=== PATIENT | male | born 1950 | race Caucasian/White ===

== ENCOUNTER 2021-04-30 16:52 | Outpatient (CLI) | payer MEDICARE, SELFPAY ==
--- NOTE | ~2021-04-30 | US_ITS ---
EXAMINATION: US thyroid EXAM DATE: 04/30/2021 17:40 INDICATION: E05.90 - Thyrotoxicosis, unspecified without thyrotoxic c... TECHNIQUE: Multiple grayscale and Doppler images of the thyroid were obtained (by a technologist who performed the scan) and subsequently reviewed. Individual nodules and recommendations may be reporte d in accordance with TI-RADS system as designated by the 2017 ACR White Paper TI-RADS committee. The re is no prior study for comparison. FINDINGS: Right thyroid lobe measures 3.9 x 1.6 x 1.4 cm, the left thyroid lobe measures 4.1 x 2.0 x 1.6 cm. Mi ldly heterogeneous thyroid echogenicity with some scattered thyroid nodules, largest in the left thyr oid lobe measuring 2.1 x 1.8 x 1.2, solid (2 points), isoechoic (1 point), wider than tall, smooth we ll defined margin, without echogenic foci, category TR3 for this nodule. Others are less than 1 cm. IMPRESSION: 1. Normal-sized thyroid. 2. Recommend one-year follow-up ultrasound for left thyroid lobe nodule. Reviewed, dictated and finalized at location B.
== END 2021-04-30 16:53 | disposition home or self-care (01) ==
LOC: ANHIMG 16:53
PROVIDERS: PCP Family Medicine; Visit Provider Internal Medicine Endocrinology, Diabetes & Metabolism
DX: E05.90 Thyrotoxicosis, unspecified without thyrotoxic crisis or storm (principal)
CPT/HCPCS: 76536

== ENCOUNTER 2021-11-05 15:10 | Outpatient (CLI) | payer MEDICARE, SELFPAY ==
[2021-11-05 17:04] LABS: Free T4 Free Thyroxine 1.46 ng/mL (0.78-2.19)
[2021-11-05 17:19] LABS: Thyroid Stimulating Hormone < 0.015 uIU/mL (0.465-4.680)
[2021-11-08 07:33] LABS: Triiodothyronine T3 Free 4.4 pg/mL (2.3-4.2)
== END 2021-11-05 15:11 | disposition home or self-care (01) ==
LOC: ANHWCLAB 15:13
PROVIDERS: PCP Family Medicine; Visit Provider Internal Medicine Endocrinology, Diabetes & Metabolism
DX: E04.1 Nontoxic single thyroid nodule (principal); E05.90 Thyrotoxicosis, unspecified without thyrotoxic crisis or storm
CPT/HCPCS: 36415; 84439; 84443; 84481

== ENCOUNTER → 2021-12-27 00:13 | Outpatient (CLI) | payer MEDICARE, SELFPAY ==
[2021-12-27 13:37] LABS: SARS-CoV-2 RNA PCR Negative
== END ==
PROVIDERS: Nurse Practitioner Family; PCP Family Medicine; Visit Provider Internal Medicine Critical Care Medicine
DX: R68.89 Other general symptoms and signs (principal); Z20.822 Contact with and (suspected) exposure to COVID-19
CPT/HCPCS: C9803; U0003; U0005

== ENCOUNTER 2021-12-30 07:28 | Outpatient (CLI) | payer MEDICARE, SELFPAY ==
--- NOTE | 2022-01-13 12:01 | WPDSLEEPSTUD ---
Sleep Study Date of Study: 12/30/21 Ordering Provider: Abimael Gilman MD Interpreting Physician: Rebecca Verdugo DO Sleep Study Type: Polysomnogram Height: 1.78 m Weight: 86.183 kg Body Mass Index: 27.2 Neck Circumference (inches): 14 Simpson: 7 Reason for Sleep Study Frequent nighttime awakenings Sleep History The patient is a 71-year-old male with ADD, anxiety, autoimmune thyroiditis, hypertension, back pain, neck pain and hyperlipidemia that had a sleep study ordered by his primary care physician for sleep disturbances. The patient denies awakening from sleep short of breath. He denies awakening at night with her, belching more. He occasionally snores not others complain. He rarely has trouble sleeping when he has a cold. He denies waking up gasping for air throughout the night. He denies having breathing problems at night observed by himself or others. He occasionally sweats at night. He frequently notices heart palpitations throughout the night. He frequently falls asleep during the day but never while driving. He denies having trouble at school or work due to sleepiness. He denies sleep paralysis, cataplexy and hypnagogic / hypnopompic hallucinations. He occasionally has nightmares. He rarely remembers his dreams. He rarely has thoughts racing through his mind. He occasionally feels sad or depressed. He occasionally has anxiety. He frequently has muscular tension. He denies noticing parts of his body jerk. He denies kicking during the night. He frequently has crawling and aching feelings in his legs and occasionally has leg pain during the night. He denies grinding his teeth during sleep awakening with morning jaw pain. He is frequently bothered by pain during the day frequently awakened by pain during the night. He constantly wakes up feeling stiff in the morning. He constantly wakes up with sore and achy muscles. She constantly wakes up with pain in the neck and spine. He goes to bed between 10-11 p.m. on both weekdays and weekends. It takes him a few minutes to fall asleep. He wakes up 3-5 times throughout the night to urinate. He is able fall back asleep immediately. He wakes up around 6:00 a.m. on both weekdays and weekends. He is unsure how many hours of sleep he gets per night. He does not stay in bed after waking up the morning. He currently lives with his but they sleep in separate rooms. He does not consume any caffeinated beverages within 2 hours of bedtime. He does not engage in physical exercise before bedtime. He does not read or watch television before falling asleep. He will take naps in the afternoon or the evening but they are not refreshing. He drinks 2-3 cups of caffeinated beverage per day. He will drink alcohol socially but not every day. He denies tobacco and recreational drug use. [facility] Past Medical History Medical History ADD (attention deficit disorder) Anxiety Arthritis Autoimmune thyroiditis Back pain Benign essential hypertension BMI 26.0-26.9,adult BMI 27.0-27.9,adult BMI 28.0-28.9,adult Cervical spondylosis Cervicalgia Demyelinating changes in brain Encounter for routine adult health examination without abnormal findings Family history of diabetes mellitus type II Fatigue Follow up Headache High frequency hearing loss History of concussion Hyperlipidemia Hypertension Left shoulder pain On long term acute care registered nurse drug therapy Paresthesia Rectal tear Right knee dislocation Right shoulder strain Screening for prostate cancer Skin tag of rectum Spondylosis of lumbar spine Vitamin D deficiency Surgical History Surgical History H/O arthroscopy of shoulder H/O right knee surgery History of removal of cyst Family History Family History Mother Asthma Family history of cardiovascular disease
[2022-01-13 17:36] VITALS: BMI 27.2
== END 2021-12-31 07:16 | disposition home or self-care (01) ==
LOC: ANHCSM 07:30
PROVIDERS: PCP Family Medicine; Visit Provider Family Medicine
DX: F51.8 Other sleep disorders not due to a substance or known physiological condition (principal); R53.83 Other fatigue; G37.9 Demyelinating disease of central nervous system, unspecified; I10 Essential (primary) hypertension; G47.61 Periodic limb movement disorder; G47.9 Sleep disorder, unspecified
CPT/HCPCS: 95810

== ENCOUNTER 2022-01-06 13:31 | Outpatient (CLI) | payer MEDICARE, SELFPAY ==
--- NOTE | ~2022-01-06 | NM_ITS ---
EXAMINATION: NM thyroid scan w uptake DATE: 01/07/2022 15:19 INDICATION: Evaluate hyperthyroidism COMPARISON: Ultrasound dated 04/30/2021 TECHNIQUE: 345 microcuries I-123 was administered orally in capsule form. Scintigraphic images of th e thyroid gland were obtained at 24 hours. Thyroid uptake was calculated by the technologist. FINDINGS: The thyroid uptake is 31.3% (normal 10-30%), with the right lobe measuring 13% uptake and the left 18 .7%. There is no focal area of decreased or increased activity to suggest hypofunctioning or hyperfun ctioning nodule. IMPRESSION: 1. Mild increased 24-hour iodine uptake without focal hyperfunctioning/hyperfunctioning nodules cons istent with Graves' disease. Reviewed, dictated and finalized at location B. IMPRESSION: 1. Mild increased 24-hour iodine uptake without focal hyperfunctioning/hyperfu nctioning nodules consistent with Graves' disease.
== END 2022-01-06 13:32 | disposition home or self-care (01) ==
PROVIDERS: PCP Family Medicine; Visit Provider Internal Medicine Endocrinology, Diabetes & Metabolism
DX: E05.90 Thyrotoxicosis, unspecified without thyrotoxic crisis or storm (principal)
CPT/HCPCS: 78014; A9516

== ENCOUNTER 2022-11-17 09:34 | Outpatient (CLI) | payer MEDICARE, SELFPAY | END 2022-11-17 09:35 | disposition home or self-care (01) | LOC: ANHWCLAB 09:36 | PROVIDERS: PCP Family Medicine; Visit Provider Internal Medicine Endocrinology, Diabetes & Metabolism | DX: E89.0 Postprocedural hypothyroidism (principal) | CPT/HCPCS: 36415; 84439; 84443 ==

== ENCOUNTER 2023-05-24 09:05 | Outpatient (CLI) | payer MEDICARE, SELFPAY ==
[2023-05-24 13:20] LABS: Free T4 Free Thyroxine 1.76 ng/mL (0.78-2.19)
[2023-05-24 13:32] LABS: Thyroid Stimulating Hormone 0.053 uIU/mL (0.465-4.680)
== END 2023-05-24 09:06 | disposition home or self-care (01) ==
LOC: ANHWCLAB 09:06
PROVIDERS: PCP Family Medicine; Visit Provider Internal Medicine Endocrinology, Diabetes & Metabolism
DX: E89.0 Postprocedural hypothyroidism (principal)
CPT/HCPCS: 36415; 84439; 84443

== ENCOUNTER 2023-08-04 10:48 | Outpatient (CLI) | payer MEDICARE, SELFPAY ==
--- NOTE | 2023-08-22 08:27 | WPDHOLTEREM ---
Holter/Event Monitor Holter/Event Monitor Date of procedure: 08/04/23 Holter/Event Procedure: 48 Hr Holter Monitor Indications: Cardiac arrhythmia Conclusion: 1. 48 hour holter monitor on 08/04/23. 2. Predominant rhythm is atrial fibrillation. HR range 41-135 bpm; average 74 bpm. HR at 41 bpm was sinus bradycardia with sinus arrhythmia at 01:09. HR at 135 bpm was atrial fibrillation at 07:27. 3. No other supraventricular arrhythmias. 4. There are 47 premature ventricular complexes. No ventricular tachycardia. 5. No significant pauses greater than 2 seconds. 6. No symptoms available for correlation.
== END 2023-08-04 10:49 | disposition home or self-care (01) ==
LOC: ANHCARD 10:49
PROVIDERS: PCP Family Medicine; Visit Provider Family Medicine
DX: I49.9 Cardiac arrhythmia, unspecified (principal); I49.3 Ventricular premature depolarization
CPT/HCPCS: 93225; 93226

== ENCOUNTER 2024-10-12 02:25 | Day surgery (SDC) | payer MEDICARE, SELFPAY ==
[2024-10-03 15:42] VITALS: BMI 28.0
--- NOTE | 2024-10-03 16:20 | PC.NURSE ---
Spoke with PATIENT regarding medication XARELTO. PATIENT verbalizes understanding that the last dose is to be taken on 10/08/2024 and the Endoscopist will instruct them when to restart after the procedure.
--- OUTSIDE RECORDS SUMMARY | 2024-10-12 02:28 | XMS_ITS | Referral Summary ---
Author Organization [facility] Medical Office Building [address] [place] [address] Care Team Providers Care Press Clippings Cutter And Paster Name Role Phone Abimael Gilman MD Primary Care Provider + [phone] Eva Yuan MD Unavailable [phone] Carissa Esquivel MD Unavailable [phone] Allergies No known active allergies Medications amLODIPine (NORVASC) 10 mg tablet 02/09/2022 Active atorvastatin (LIPITOR) 20 mg tablet 02/09/2022 Active losartan-hydroCH LOROthiazide (HYZAAR) 100-12.5 mg per tablet 02/09/2022 Active methIMAzole (TAPAZOLE) 5 mg tablet 02/02/2022 Active iron bis-gly/FA/C/B12 /Ca/succ (IRON-150 ORAL) Take by mouth Active ascorbic acid (VITAMIN C ORAL) Take by mouth Active aspirin 81 mg enteric coated tablet Take 81 mg by mouth daily Active ubidecarenone (H2Q COQ10 ORAL) Take by mouth Active Active Problems Problem Noted Date Diagnosed Date Graves disease 02/11/2022 Social History Tobacco Use Types Packs/Day Years Used Date Smoking Tobacco: Never Personal Safety Answer Date Recorded Getting School Help Needed Not on file 10/08 Sex and Gender Information Value Date Recorded Sex Assigned at Not on file 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 Gender Identity Not on file Sexual Orientation Not on file Last Filed Vital Signs Vital Sign Reading Time Taken Comments Blood Pressure 172/74 02/11/2022 11:07 AM CDT Pulse 61 02/11/2022 11:07 AM CDT Temperature - - Respiratory Rate - - Oxygen Saturation 100% 02/11/2022 11:07 AM CDT Inhaled Oxygen Concentration - - Weight 80.7 kg (178 lb) 02/11/2022 11:07 AM CDT Height - - Body Mass Index - - Plan of Treatment Not on file Insurance R HMO REF R HMO REF [place] [id number] [facility] Care Teams Press Clippings Cutter And Paster Relationship Specialty Start Date End Date Abimael Gilman MD PCP - General Family Medicine 02/11/22 Eva Yuan MD Radiation Oncologist Radiation Oncology 02/11/22 Carissa Esquivel MD [address] [address] Referring Physician Internal Medicine 02/11/22
--- OUTSIDE RECORDS SUMMARY | 2024-10-12 02:28 | XMS_ITS | Clinical Summary ---
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 Gender Identity Not on file Sexual Orientation Not on file Obstetrics History Last Filed Vital Signs Vital Sign Reading Time Taken Comments Blood Pressure 172/74 02/11/2022 11:07 AM CDT Pulse 61 02/11/2022 11:07 AM CDT Temperature - - Respiratory Rate - - Oxygen Saturation 100% 02/11/2022 11:07 AM CDT Inhaled Oxygen Concentration - - Weight 80.7 kg (178 lb) 02/11/2022 11:07 AM CDT Height - - Body Mass Index - - Plan of Treatment Health Maintenance Due Date Last Done Comments Depression Screening 1950 Fall Risk Assessment 1950 Hepatitis C Screening 1950 Hepatitis B Screening 01/26/1966 Pneumococcal vaccine 65+ (1 of 1 - PCV) 01/26/1998 Zoster Vaccine (1 of 2) 01/26/1998 Well Visit 65+ 01/26/2013 Influenza Vaccine (#1) 2024 DTaP/Tdap/Td Vaccine (2 - Td or Tdap) 05/16/202708/2016 Insurance R HMO REF R H[facility] REF [facility] Care Teams Material Damage Appraiser Relationship Specialty Start Date End Date Abimael Gilman MD PCP - General Family Medicine 02/11/22 Eva Yuan MD Radiation Oncologist Radiation Oncology 02/11/22 Carissa Esquivel MD [address] [address] Referring Physician Internal Medicine 02/11/22
--- OUTSIDE RECORDS SUMMARY | 2024-10-12 02:28 | XMS_ITS | CONTINUITY OF CARE DOCUMENT ---
Author Name valentin hanson Address Unknown Organization [facility] Address [address] [place] [address] Phone [phone] Care Team Providers Care Director Voice Name Role Phone valentin hanson Unavailable Unavailable INSURANCE PROVIDERS Payer name Policy type / Coverage type [employer] red alliance party ID [employer] Workers[employer] compensation health cla [id number]
--- OUTSIDE RECORDS SUMMARY | 2024-10-12 02:28 | XMS_ITS | Continuity of Care Document ---
Author Name [facility] Organization [facility] Care Team Providers Care Compo Conveyor Operator Name Role Phone [facility] Unavailable Unavailable Problems Combined list of problems from Department of Defense and Veterans Affairs facilities. It does not include entries that were removed or entered in error. Problem Status Onset Date Problem Type Date of Resolution Comments Source H/O: Stroke (SCT 821226300) Active 0 Condition Aug 06, 2020 Entered By: LIZ MARTÍNEZ Comment: Presumed small-vessel ischemic stroke diagnosed at Neurology visit 01/16/20 [facility] Anxiety (SNOMED CT 80439272) Active Condition [facility] Benign essential hypertension Active Condition [facility] Benign hypertension (SNOMED CT 59454061) Active Condition [facility] Chronic frontal sinusitis (SNOMED CT 22208579) Active Condition [facility] Exposure to potentially hazardous substance Active Condition Jul 19, 2023 Entered By: SHAYLA MARSH I Comment: [facility] [place] [place] [facility] Hearing loss (SNOMED CT 58746217) Active Condition [facility] Hyperlipidemia Active Condition [facility] Hyperlipidemia (SNOMED CT 22454777) Active Condition [facility] Diagnosis: ICD-10-CM I10 Essential (primary) hypertension Active Diagnosis [facility] Diagnosis: ICD-10-CM H04.123 Dry eye syndrome of bilateral lacrimal glands Active Diagnosis [facility] Diagnosis: ICD-10-CM F41.9 Anxiety disorder, unspecified Active Diagnosis [facility] Diagnosis: ICD-10-CM Z77.29 Contact with and exposure to other hazardous substances Active Diagnosis [facility] Diagnosis: ICD-10-CM Z71.9 Counseling, unspecified Active Diagnosis [facility] Medications Combined list of outpatient medications from Department of Defense and Veterans Affairs facilities.Medications provided include 1) outpatient medications from the last 15 months, and 2) patient-reported medications. Medication Details Route Status Patient Instructions Prescription Expires Prescription Number Last Dispense Date Ordering Provider Order Date Order Qty Source AMLODIPINE BESYLATE 10MG TAB TAKE ONE TABLET BY MOUTH ONCE A DAY ORAL ACTIVE CRISTINA COOL 2017 [facility] Kezia ASPIRIN 81MG TAB,EC TAKE ONE TABLET BY MOUTH ONCE A DAY ORAL ACTIVE CRISTINA COOL 2021 [facility] N FLUVOXAMINE MALEATE 50MG TAB TAKE ONE TABLET BY MOUTH AT BEDTIME FOR 2 WEEKS THEN STOP ORAL DISCONT INUED 08/19/2023 [id number] PHILIP LEE JR 2022 14 [facility] N HYDROCHLORO THIAZIDE 25MG TAB TAKE ONE-HALF TABLET BY MOUTH ONCE A DAY ORAL ACTIVE CRISTINA COOL 2019 [facility] N LEVOTHYROXI NE NA 100MCG TAB (SYNTHROID) TAKE ONE TABLET BY MOUTH EVERY MORNING BEFORE A MEAL ORAL ACTIVE CRISTINA COOL 2023 [facility] N LORAZEPAM 0.5MG TAB TAKE ONE TABLET BY MOUTH TWICE DAILY NEEDED ORAL 02/19/2024 [id number] PHILIP LEE JR 2023 60 [facility] N LORAZEPAM 0.5MG TAB TAKE ONE TABLET BY MOUTH THREE TIMES A DAY NEEDED ORAL ACTIVE MA ELOISA 2012 [facility] N LOSARTAN POTASSIUM 100MG TAB TAKE ONE TABLET BY MOUTH ONCE A DAY ORAL ACTIVE ,MA ELOISA 2012 [facility] N PEG-400 0.4%/PROPYL ALISON GLYCOL 0.3% SOLN,OPH INSTILL 1 DROP IN BOTH EYES FOUR TIMES A DAY NEEDED OPHTHA LMIC ACTIVE 11/30/2024 [id number] SONJA JASMINE 2023 30 [facility] N RIVAROXABAN 20MG TAB TAKE ONE TABLET BY MOUTH ONCE A DAY ORAL ACTIVE COOL CRISTINA 2023 [facility] N Allergies, Adverse Reactions, Alerts Combined list of allergies from [facility] facilities. It does not include entries that were removed or entered in error. Substance Category Reaction Severity Reaction type Status Date Reported Comments Source ATORVASTATIN Propensity to adverse reactions to drug (finding) Muscle pain active [facility] Immunizations Combined list of available immunizations from the [facility] facilities. Immunization Series Date Given Administered By Site Reaction Lot Number CVX Code Drug Photogravure Press Operator Status Comments Source PNEUMOCOCCAL CONJUGATE PCV 13 2017 133 complet ed [facility] N TDAP 2016 115 complet ed Right Deltoid [facility] Vital Signs Combined list of inpatient and outpatient Vital Signs from [facility], ranging from 12 months to all on record, depending upon the facility. Vital Sign Value Date Comments Source SYSTOLIC BLOOD PRESSURE 144 06/08/2024 10:26:08 [facility] DIASTOLIC BLOOD PRESSURE 69 06/08/2024 10:26:08 [facility] PULSE OXIMETRY 98 06/08/2024 10:26:08 S [facility] WEIGHT 197.5 06/08/2024 10:26:08 [facility] BMI 28 kg/m2 06/08/2024 10:26:08 [facility] PAIN 1 06/08/2024 10:26:08 [facility] TEMPERATURE 97.7 06/08/2024 10:26:08 [facility] PULSE 30 06/08/2024 10:26:08 [facility] RESPIRATION 18 06/08/2024 10:26:08 [facility] Encounters Combined list of: 1) Encounters from Department of Veterans Affairs facilities going backup to the last 18 months, not all VA inpatient encounters are included; 2) Encounters from the Department of Defense facilities going backup to 280 months. Location Location Details Encounter Type Encounter Number Reason For Visit Attending Provider ADM Date DC Date Status Disposition Source [facility] PSYCH DIAG EVAL W/MED SRVCS [id number] Diagnos is: ICD-10- CM F41.9 Anxiety disorde r, unspeci fiwes LEEWILL MARIA DEL ROSARIO Ariel ANTUNEZ 05/10 [facility] OFFICE O/P EST MOD 30-39 MIN [id number] Diagnos is: ICD-10- CM I10 Essenti al (primar y) hyperte CRISTINA Summers 06/14 [facility] OFFICE O/P EST MOD 30-39 MIN [id number] Diagnos is: ICD-10- CM F41.9 Anxiety disorde r, unspeci yonatan LEEWILL MARIA DEL ROSARIO George JR 06/14 [facility] END OF LIFE COUNSELING [id number] Diagnos is: ICD-10- CM 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, unspeci DARLIN Kendall 06/17 [facility] OFFICE O/P EST HI 40-54 MIN [id number] Diagnos is: ICD-10- CM Z77.29 Contact with and exposur e to other hazardo us substan ANGLE Thomas I 07/19 [facility] Outpatient Encounter [id number] BRAVO RIOS 07/19 [facility] O[facility]P EST MOD 30 MIN [id number] Diagnos is: ICD-10- CM F41.9 Anxiety disorde r, unspeci RAFFI Bruno 08/19 [facility] En[facility] [id number] 10/27 [facility] O/P EST MOD 30 MIN [id number] Diagnos is: ICD-10- CM H04.123 Dry eye syndrom e of bilater al lacrima l glands IGLESIA JASMINE [facility] 11/29 [facility] Outpatient Encounter [id number] IGLESIA JASMINE [facility] 12/12 [facility] Outpatient Encounter [id number] IGLESIA JASMINE [facility] 12/12 [facility] OFFICE O/P EST MOD 30 MIN [id number] Diagnos is: ICD-10- CM I10 Essenti al (primar y) hyperte CRISTINA Summers 06/08 [facility] Social History Combined list of available smoking, tobacco, and other social history from Department of Defense and Veterans Affairs facilities. Social History Type Response Date Comment [facility] e Tobacco smoking status [facility] VA-TOBACCO NEVER USED 06/08/2024 [facility] History of tobacco use VA-TOBACCO NEVER USED 06/14/2023 [facility] History of tobacco use VA-TOBACCO NEVER USED 06/19/2022 [facility] History of tobacco use VA-TOBACCO NEVER USED 06/24/2021 [facility] History of tobacco use MA-TOBACCO NEVER USED 06/27/2020 [facility] History of tobacco use MA-TOBACCO NEVER USED 07/14/2018 [facility] History of tobacco use TOBACCO REFUSED S CREEN V15 07/14/2017 [facility] History of tobacco use LIFETIME NON-USER OF TOBACCO 04/28/2013 [facility] Plan of Care List of future care activities from Department of [facility] Affairs facilities. Additional future care activities may be listed in the Assessment and Plan section. Date/Time Care Activity Care Activity Detail Facili ty 12/01/2024 AMBULATORY - SURGERY AMBULATORY - SURGERY [facility]
--- OUTSIDE RECORDS SUMMARY | 2024-10-12 02:28 | XMS_ITS | Clinical Summary ---
Author Organization [facility] Address [address], [address] [address] Phone Care Team Providers Care Clinical Documentation Clerk Name Role Phone Tay Pascual MD Primary Care Provider [phone] Social History Tobacco Use Types Packs/Day Years Used Date Smoking Tobacco: Never Assessed Sex and Gender Information Value Date Recorded Sex Assigned at Not on file Legal Sex Male 10:25 PM CDT Gender Identity Not on file Sexual Orientation Not on file Plan of Treatment Health Maintenance Due Date Last Done Comments Hepatitis C Virus (HCV) Screening 1950 TdaP Immunization 1950 Pneumococcal Immunization (5 0+ years) (1 of 1 - PCV) 01/26/1998 Zoster Immunization (1 of 2) 01/26/1998 Respiratory Syncytial Virus (RSV) Immunization (Adult) (1 - 1-dose 75+ series) 01/26/2023 Influenza Immunization (#1) 2024 SARS-COV-2 Immunization ( season) 2024 Colonoscopy High Risk Discontinued 03/02/2019 Colonoscopy Discontinued 03/02/2019 Colorectal Cancer Screening Discontinued Cologuard Discontinued Hepatitis B Immunization Aged Out No longer eligible based on patient's age to complete this topic Immunochemical Fecal Occult Blood Discontinued Meningococcal Immunization (ACWY) Aged Out No longer eligible based on patient's age to complete this topic Rotavirus Immunization Aged Out No lo nger eligible based on patient's age to complete this topic Procedures Procedure Name Priority Date/Time Associated Diagnosis Comments COLONOSCOPY Routine 03/02/2019 from Last 3 Months or Most Recently Relevant to Health Maintenance Results * COLONOSCOPY (03/02/2019) Josué Joya DO PROCEDURE/MINOR SURGICAL ORDERA BLES Edited Result - Final from Last 3 Months or Most Recently Relevant to Health Maintenance Insurance MEDICARE [facility] Care Teams Clinical Documentation Clerk Relationship Specialty Start Date End Date Tay Pascual MD [address] [place], [place] [id number] PCP - General Internal Medicine 03/07/19
[2024-10-12 10:37] VITALS: BP 148/71; PULSE 56; RESP 20; TEMP 37; O2SAT 100; BMI 27.8
[2024-10-12] MEDS: LACTATED RINGERS 1,000 ML 150 ML IV CONT (10:54)
--- NOTE | 2024-10-12 11:07 | PM.IMHP ---
H&P: HPI History of Present Illness Date/Time: 10/12/24 11:07 Chief Complaint: History of colon polyps Narrative: The patient has a history of colonic polyps, the last colonoscopy was in 2019. 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 Encounter for routine adult health examination without abnormal findings Spondylosis of lumbar spine Paresthesia BMI 28.0-28.9,adult Headache Cervicalgia Cervical spondylosis Follow up On [facility] therapy Back pain ADD (attention deficit disorder) History of concussion Family history of diabetes mellitus type II Screening for prostate cancer High frequency hearing loss Vitamin D deficiency Anxiety Benign essential hypertension Hyperlipidemia Surgical History Surgical History History of removal of cyst H/O right knee surgery H/O arthroscopy of shoulder Family History Family History Mother Asthma Family history of cardiovascular disease Family history of heart disease in male family member before age 55 Father Family history of cardiovascular disease Family history of heart disease in male family member before age 55 Cerebral hemorrhage Heart disease Sibling Acute myocardial infarction Hyperlipidemia Heart disease Hypertension Cerebrovascular accident Sibling Heart disease Hyperlipidemia Hypertension Other Alcoholism Diabetes mellitus Thyroid disease Social History Social History Smoking status: Never smoker Second hand tobacco smoke exposure: Yes Alcohol intake: current Drinks per week: 8 Alcohol use details: social Substance use: never Substance use type: does not use Do You Feel Safe in your Home?: Yes Lack of Transportation: No Lack of Food: Never True Current Housing: I Have Housing Concerned About Future Housing: No Difficulty Paying Gas/Electric Bills: No Difficulty Paying for Meds: No Currently Unemployed: No Education: Bachelor's Degree Difficulty w/ Childcare or Family Care: No Living arrangements: with family Occupation/Education: retired 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 Gender identity (if verbalized by the patient): Male Spiritual care concerns: No Meds Home Medications and Allergies Home Medications ?Medication ?Instructions ?Recorded ?Confirmed ?Type cholecalciferol (vitamin D3) 125 125 mcg PO DAILY 09/27/23 10/12/24 History mcg (5,000 unit) tablet levothyroxine 100 mcg tablet See Rx Instructions .Route 07/17/24 10/12/24 Rx .COMPLEX #90 tabs rivaroxaban 20 mg tablet (Xarelto) See Rx Instructions .Route 07/17/24 10/12/24 Rx .COMPLEX #30 tabs amlodipine 10 mg tablet 10 mg PO DAILY #90 tabs 08/15/24 10/12/24 Rx losartan 100 See Rx Instructions .Route 08/28/24 10/12/24 Rx mg-hydrochlorothiazide 12.5 mg .COMPLEX #90 tabs tablet lorazepam 0.5 mg tablet 0.5 mg PO TID PRN anxiety #30 tabs 10/05/24 Rx Allergies Allergy/AdvReac Type Severity Reaction Status Date / Time [id number] Reductase AdvReac Mild myalgia Verified 10/12/24 10:36 Inhibitor Vital Signs Vital Signs - 24 hr 10/12/24 10:37 Temperature 98.6 F Pulse Rate 56 L Respiratory Rate 20 Blood Pressure 148/71 H Pulse Oximetry 100 Oxygen Delivery Room Air Exam Const: General: cooperative and healthy appearing Resp: Effort & Inspection: normal respiratory effort and able to speak in complete sentences Auscultation: clear to auscultation bilaterally Cardio: Rate: regular rate Rhythm: regular rhythm GI: Inspection: normal to inspection GI Palp: No No hepatosplenomegaly present Auscultation: normal bowel sounds Rectal Exam: deferred Skin: General skin exam: normal color Psych: Appearance: grossly normal Mental Status: mental status grossly normal Assessment and Plan Assessment and plan (1) History of colonic polyps: Code(s): Z86.0100 - Personal history of colon polyps, unspecified Status: Acute Assessment and Plan: The patient is deemed a good candidate for the procedure. Consent signed. Will proceed.
--- NOTE | 2024-10-12 11:11 | WPDANESEPPF ---
Anes - Initial Pre Proc Eval Procedure: Operation Date: 10/12/24 10:30 Proposed Procedures p Screening Colonoscopy - Gage Allen MD Date/Time: 10/12/24 11:11 Surgeon: Gage Allen MD Pre Op Diagnosis: Screening for malignant neoplasm of colon Patient Data Age: 74 Gender: M Height: 1.78 m Weight: 88 kg Last Vital Signs Temp 98.6 F 10/12/24 10:37 Pulse 56 L 10/12/24 10:37 Resp 20 10/12/24 10:37 BP 148/71 H 10/12/24 10:37 Pulse Ox 100 10/12/24 10:37 O2 Del Method Room Air 10/12/24 10:37 Allergies Allergy/AdvReac Type Severity Reaction Status Date / Time [id number] Reductase AdvReac Mild myalgia Verified 10/12/24 10:36 Inhibitor Home Medications ?Medication ?Instructions ?Recorded ?Confirmed ?Type cholecalciferol (vitamin D3) 125 125 mcg PO DAILY 09/27/23 10/12/24 History mcg (5,000 unit) tablet levothyroxine 100 mcg tablet See Rx Instructions .Route 07/17/24 10/12/24 Rx .COMPLEX #90 tabs rivaroxaban 20 mg tablet (Xarelto) See Rx Instructions .Route 07/17/24 10/12/24 Rx .COMPLEX #30 tabs amlodipine 10 mg tablet 10 mg PO DAILY #90 tabs 08/15/24 10/12/24 Rx losartan 100 See Rx Instructions .Route 08/28/24 10/12/24 Rx mg-hydrochlorothiazide 12.5 mg .COMPLEX #90 tabs tablet lorazepam 0.5 mg tablet 0.5 mg PO TID PRN anxiety #30 tabs 10/05/24 Rx Patient hx anesthesia problems: none Family hx anesthesia problems: none Results Review: All pre-operative results and documents have been reviewed as part of the pre-operative evaluation. 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 Encounter for routine adult health examination without abnormal findings Spondylosis of lumbar spine Paresthesia BMI 28.0-28.9,adult Headache Cervicalgia Cervical spondylosis Follow up On [facility] Back pain ADD (attention deficit disorder) History of concussion Family history of diabetes mellitus type II Screening for prostate cancer High frequency hearing loss Vitamin D deficiency Anxiety Benign essential hypertension Hyperlipidemia Surgical History Surgical History History of removal of cyst H/O right knee surgery H/O arthroscopy of shoulder Family History Family History Mother Asthma Family history of cardiovascular disease Family history of heart disease in male family member before age 55 Father Family history of cardiovascular disease Family history of heart disease in male family member before age 55 Cerebral hemorrhage Heart disease Sibling Acute myocardial infarction Hyperlipidemia Heart disease Hypertension Cerebrovascular accident Sibling Heart disease Hyperlipidemia Hypertension Other Alcoholism Diabetes mellitus Thyroid disease Social History Social History Smoking status: Never smoker Second hand tobacco smoke exposure: Yes Alcohol intake: current Drinks per week: 8 Alcohol use details: social Substance use: never Substance use type: does not use Do You Feel Safe in your Home?: Yes Lack of Transportation: No Lack of Food: Never True Current Housing: I Have Housing Concerned About Future Housing: No Difficulty Paying Gas/Electric Bills: No Difficulty Paying for Meds: No Currently Unemployed: No Education: Bachelor's Degree Difficulty w/ Childcare or Family Care: No Living arrangements: with family Occupation/Education: retired 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 HTN, hyperlipidemia, hypothyroidism. Informed Consent: The patient's anesthetic plan and its attendant risks and benefits were discussed with the patient/family/POA. Questions were solicited and answers provided to the satisfaction of the patient/family/POA.
[2024-10-12 11:38] VITALS: BP 104/61; PULSE 59; RESP 24; O2SAT 98
[2024-10-12 11:48] VITALS: BP 109/71; PULSE 55; RESP 19; O2SAT 98
[2024-10-12 11:58] VITALS: BP 120/72; PULSE 50; RESP 18; O2SAT 100
== END 2024-10-12 12:11 | disposition home or self-care (01) ==
PROVIDERS: PCP Family Medicine; Visit Provider Internal Medicine Gastroenterology
PROC: 0DJD8ZZ Inspection of Lower Intestinal Tract, Via Natural or Artificial Opening Endoscopic (ICD-10-PCS; CPT 45378; principal; 2024-10-12 10:30)
DX: Z12.11 Encounter for screening for malignant neoplasm of colon (principal); D17.5 Benign lipomatous neoplasm of intra-abdominal organs; K57.30 Diverticulosis of large intestine without perforation or abscess without bleeding; K64.8 Other hemorrhoids; Z86.0100 Personal history of colon polyps, unspecified
CPT/HCPCS: G0105; J2003; J2704; J7120